=== PATIENT | female | born 2005 | race Two or more races ===

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

== ENCOUNTER 2024-12-30 22:21 | Observation (INO) | payer MEDICAID ==
[~2024-12-30] VITALS: Ht 154.9 cm; Wt 74.4 kg
[2024-12-31] MEDS ORDERED: PREN1TAB71 PO (00:42)
--- NOTE | 2024-12-31 06:06 | DVHDS2 ---
Physician Discharge Progress N Final Diagnosis: Not in labor Operations or Procedures: Operations or Procedures SUBJECTIVE Heide Dykes is a 19 yo with IUP at 28w0d presenting for upper abdominal pain after eating Patient states that for the last 2 weeks she has had upper abdominal pain after she eats big meals. She points to the center of her abdomen and says it feels like a dull ache. Denies heartburn, nausea, or vomiting. Denies epigastric pain. Denies UCs, leaking fluid, or vaginal bleeding. States positive movement. She is not currently feeling the pain PNC: with [facility] LMP: 06/16/24 EDC: 03/24/25 Review of Systems: Neuro: No complaints Heart: No complaints Lungs: No complaints GI: No complaints : No complaints Skin: No complaints Extremities: No complaints OBJECTIVE VSS FHR: Baseline: 135 Variability: Moderate Accelerations: Present Decelerations: Absent Category: 1 UCs: none noted Neuro: A&O x4. No apparent distress. Affect appropriate Heart: Regular rate and rhythm Lungs: Clear bilaterally GI: Gravid. No tenderness Skin: Dry and intact. No rashes or lesions Extremities: Cap refill WNL. ASSESSMENT 19 yo with IUP at 28w0d Not in labor Category 1 Tracing PLAN -Discussed physiologic changes and common discomforts of . Encouraged patient to eat 6 small meals a day, instead of 3 bigger meals. Encouraged patient to focus on quality, healthy foods with protein. -Next appointment is on Friday, 01/04 -Discussed labor precautions and kick counts. Answered all patient questions and concerns. Patient verbalizes understanding. Condition on Discharge: Good Disposition: Home Discharge Instructions: Diet: Regular Activity: No Restrictions, As Tolerated Medications: No change Follow Up Care: Discharge Statement: "Patient was advised to return to the ER or call 911 if any headaches, dizziness, shortness of breath, chest pain, abdominal pain, bleeding, fevers, or worsening of medical condition. Patient was counseled about treatment plan, medications, possible side effects, patientverbalized understanding. All questions were answered to the best of my ability. This discharge took greater then 30 minutes in planning, reviewing documentation, counseling the patient, and discussing with other team members." Visit Coding OBGYN Date of Service: Dec 31, 2024 Billing Provider: ISAURO BROWN CNM [employer]ER Common Visit Codes: [id number] INP/OBS CARE (MOD) [employer]ER Procedure Codes: 05774-75- NON-STRESS TEST ISAURO BROWN CNM Dec 31, 2024 06:06
== END 2024-12-31 01:21 | disposition home or self-care (01) ==
LOC: LDRP 22:21
PROVIDERS: ADMIT Obstetrics & Gynecology; ATTEND Obstetrics & Gynecology
DX: O26.893 Other specified pregnancy related conditions, third trimester (principal); R10.10 Upper abdominal pain, unspecified; Z3A.28 28 weeks gestation of pregnancy; Z98.890 Other specified postprocedural states
CPT/HCPCS: 59025; 81002; G0378